=== PATIENT | male | born 1990 | race African-American/Black ===

== ENCOUNTER 2021-09-13 15:34 | Emergency (ER) | payer OTHER, SELFPAY ==
--- NOTE | ~2021-09-13 | XR_ITS ---
EXAMINATION: XR HAND, LEFT CLINICAL INFORMATION: Pain, deformity COMPARISON: None TECHNIQUE: 4 views of the left hand FINDINGS: There is a fracture of the 4th proximal phalanx with slight dorsal/ulnar angulation. The fracture appears to be extra-articular. No additional fractures are evident. No radiopaque foreign body. XR/XR hand wrist LT IMPRESSION: Slightly angulated fracture of the 4th proximal phalanx. Otherwise unremarkable.
[2021-09-13 16:09] VITALS: BP 103/59; PULSE 74; RESP 18; TEMP 36.6; O2SAT 99; BMI 21.9
--- NOTE | 2021-09-13 20:59 | ED.EXTPRO ---
HPI - Extremity Problem General Chief complaint: Extremity Injury, Upper Stated complaint: xray Time Seen by Provider: 09/13/21 16:17 Source: patient Mode of arrival: ambulatory Limitations: no limitations History of Present Illness HPI Narrative: Patient to emergency room complaining of pain in his hand on the left side. Earlier today, patient was practicing martial arts. Patient attempted to punch, he immediately had pain in his 4th digit. Patient has a small bruise in the palmar aspect. Patient denies any numbness or tingling. Patient denies any other injuries. Related Data Previous Rx's Medication Instructions Recorded ibuprofen 600 mg tablet 600 mg PO TID PRN pain #20 tabs 09/13/21 Allergies Allergy/AdvReac Type Severity Reaction Status Date / Time No Known Allergies Allergy Verified 09/13/21 16:07 Review of Systems Review of Systems: Constitutional : No Weight loss, No Fever, No Chills, No Night Sweats, No Fatigue, No Malaise ENT/Mouth : No Hearing loss, No Ear Pain, No Nasal Congestion, No Sinus Pain, No Hoarseness, No sore throat, No Rhinorrhea, No Swallowing Difficulty Eyes: No Eye Pain, No Swelling, No Redness, No Foreign Body, No Discharge, No Vision Changes Cardiovascular : No Chest Pain, No SOB, No Dyspnea on Exertion, No Orthopnea, No Edema, No Palpitations Respiratory : No Cough, No Sputum, No Wheezing, No Smoke Exposure, No Dyspnea Gastrointestinal : No Nausea, No Vomiting, No Diarrhea, No Constipation, No abdominal Pain, No Hematochezia, No Melena Genitourinary : no irregular bleeding, No Dysuria, No Urinary Frequency, No Hematuria, No Urinary Incontinence, No Urgency, No Flank Pain, No Urinary Flow Changes, No Hesitancy Musculoskeletal : Complaining of 4th finger pain in the left hand, No Myalgias, No Joint Swelling Skin : No Skin Lesions, No rash Neuro : No Weakness, No Numbness, No Paresthesias, No Loss of Consciousness, No Dizziness, No Headache Psych : No Anxiety/Panic, No Depression, No SI/HI/AH/VH, No Social Issues, Heme/Lymph: No Bruising, No Bleeding,No Lymphadenopathy Endocrine : No Polyuria, No Polydipsia, No Temperature Intolerance [facility] Social History Social History Advance Directives: No Advance Directives Information Provided: No Physical Exam Vital Signs: Vital Signs: Last Vital Signs Temp 97.8 F 09/13/21 16:09 Pulse 74 09/13/21 16:09 Resp 18 09/13/21 16:09 BP 103/59 L 09/13/21 16:09 Pulse Ox 99 09/13/21 16:09 O2 Del Method 09/13/21 16:09 BMI result Body Mass Index 21.9 Const: Other: Constitutional : No Weight loss, No Fever, No Chills, No Night Sweats, No Fatigue, No Malaise ENT/Mouth : No Hearing loss, No Ear Pain, No Nasal Congestion, No Sinus Pain, No Hoarseness, No sore throat, No Rhinorrhea, No Swallowing Difficulty Eyes: No Eye Pain, No Swelling, No Redness, No Foreign Body, No Discharge, No Vision Changes Cardiovascular : No Chest Pain, No SOB, No Dyspnea on Exertion, No Orthopnea, No Edema, No Palpitations Respiratory : No Cough, No Sputum, No Wheezing, No Smoke Exposure, No Dyspnea Gastrointestinal : No Nausea, No Vomiting, No Diarrhea, No Constipation, No abdominal Pain, No Hematochezia, No Melena Genitourinary : no irregular bleeding, No Dysuria, No Urinary Frequency, No Hematuria, No Urinary Incontinence, No Urgency, No Flank Pain, No Urinary Flow Changes, No Hesitancy Musculoskeletal : Patient has ecchymosis in the palmar aspect of the left hand, pain to palpation with movement of the left digit in the left hand. There is swelling in the posterior aspect of the hand, No Myalgias, No Joint Swelling Skin : No Skin Lesions, No rash Neuro : No Weakness, No Numbness, No Paresthesias, No Loss of Consciousness, No Dizziness, No Headache Psych : No Anxiety/Panic, No Depression, No SI/HI/AH/VH, No Social Issues, Heme/Lymph: No Bruising, No Bleeding,No Lymphadenopathy Endocrine : No Polyuria, No Polydipsia, No Temperature Intolerance Course Course Course Narrative: A discal the x-ray findings with the patient, patient have also slightly angulated fracture of the 4th proximal digit. Patient's hand was placed in a partial splint, patient will follow-up with orthopedics. MDM - Extremity (Nontraumatic) Imaging Data Hand x-ray: Radiologist's impression: FINDINGS: There is a fracture of the 4th proximal phalanx with slight dorsal/ulnar angulation. The fracture appears to be extra-articular. No additional fractures are evident. No radiopaque foreign body. XR/XR hand wrist LT IMPRESSION: Slightly angulated fracture of the 4th proximal phalanx. Otherwise unremarkable. Discharge Plan Discharge Clinical Impression: Finger fracture, left Patient Disposition: Home, Self-Care Instructions: Finger Fracture (ED) Additional Instructions: Please follow-up with Orthopedics and with your primary care physician tomorrow. If you have any worsening or new symptoms, please return to the emergency room or call 911 Prescriptions: New ibuprofen 600 mg tablet 600 mg PO TID PRN (Reason: pain) Qty: 20 0RF Referrals: Nancy Lopez MD [Physician] - 2 days
== END 2021-09-13 21:10 | disposition home or self-care (01) ==
PROVIDERS: Emergency Provider Emergency Medicine
DX: S62.615A Displaced fracture of proximal phalanx of left ring finger, initial encounter for closed fracture (principal); Y29.XXXA Contact with blunt object, undetermined intent, initial encounter; Y93.9 Activity, unspecified; Y92.9 Unspecified place or not applicable; Y99.9 Unspecified external cause status; Z79.899 Other long term (current) drug therapy
CPT/HCPCS: 29130; 73110; 73130; 99282; 99283